=== PATIENT | male | born 1975 | race Two or more races ===

== ENCOUNTER 2016-11-13 07:55 | Emergency (ER) | payer OTHER ==
[~2016-11-13] VITALS: Ht 175.3 cm; Wt 78.6 kg
[~2016-11-13 07:55] MED LIST: ECO81 PO
[2016-11-13 09:35] LABS: CALCIUM 9.2 mg/dL (8.5-10.1); CARBON DIOXIDE 22.1 mmol/L (21-32); CHLORIDE SERUM 102 mmol/L (98-107); CREATININE SERUM 0.8 mg/dL (0.7-1.3); GFR1 > 60 mL/min; GLUCOSE SERUM 83 mg/dL (74-106); POTASSIUM SERUM 3.5 mmol/L (3.5-5.1); SODIUM SERUM 140 mmol/L (136-145)
[2016-11-13 09:40] LABS: ALBUMIN 4.1 g/dL (3.4-5.0); ALKALINE PHOSPHATASE 80 U/L (46-116); ALT/SGPT 46 U/L (16-63); AST/SGOT 30 U/L (15-37); BILIRUBIN TOTAL 1.1 mg/dL (0.20-1.00); TOTAL PROTEIN, SERUM 8.1 g/dL (6.4-8.2)
[2016-11-13 10:26] LABS: BASOPHIL % 0.2 % (0-2); PLATELET COUNT 282 x10^3mcL (130-400); RED CELL DISTRIBUTION WIDTH 14.1 % (11.5-14.5)
[2016-11-13 11:05] VITALS: BP 126/80
== END 2016-11-13 11:05 | disposition home or self-care (01) ==
LOC: ED 07:55
PROVIDERS: Emergency Medicine
DX: R07.89 Other chest pain (principal); F41.9 Anxiety disorder, unspecified; F15.90 Other stimulant use, unspecified, uncomplicated; F10.20 Alcohol dependence, uncomplicated; Z86.59 Personal history of other mental and behavioral disorders
CPT/HCPCS: 83880; J2060; J7030; Q0092

== ENCOUNTER 2018-01-02 10:03 | Emergency (ER) | payer SELFPAY ==
[~2018-01-02] VITALS: Ht 177.8 cm; Wt 81.6 kg
[2018-01-02 10:06] VITALS: Ht 177.8 cm; Wt 81.6 kg
[2018-01-02 10:54] LABS: BASOPHIL % 0.5 % (0-2); PLATELET COUNT 294 x10^3mcL (130-400); RED CELL DISTRIBUTION WIDTH 15.5 % (11.5-14.5)
[2018-01-02 11:03] LABS: CALCIUM 8.9 mg/dL (8.5-10.1); CARBON DIOXIDE 31.7 mmol/L (21-32); CHLORIDE SERUM 106 mmol/L (98-107); GFR1 > 60 mL/min; GLUCOSE SERUM 93 mg/dL (74-106); POTASSIUM SERUM 3.7 mmol/L (3.5-5.1); SODIUM SERUM 144 mmol/L (136-145)
[2018-01-02 12:21] VITALS: BP 125/87
== END 2018-01-02 12:21 | disposition home or self-care (01) ==
LOC: ED 10:03
PROVIDERS: Emergency Medicine
DX: K27.3 Acute peptic ulcer, site unspecified, without hemorrhage or perforation (principal); K29.70 Gastritis, unspecified, without bleeding; F41.9 Anxiety disorder, unspecified
CPT/HCPCS: 36415; Q0092; Q0162